=== PATIENT | female | born 1965 | race Caucasian/White ===

== ENCOUNTER → 2018-07-13 | Day surgery (SDC) | payer OTHER ==
--- NOTE | 2018-07-12 08:54 | History & Physical Pre-Op ---
General Information and HPI History of Present Illness: Re is a 52-year-old female with a long-standing worsening complaint of a painful cyst to her right foot. The patient has undergone an extended course of conservative care, including sugar and activity modification, rest, immobilization and course of NSAIDs. None of this is yielded her any significant relief. Patient presents today for preoperative surgical consultation. Allergies/Medications Allergies: Coded Allergies: No Known Allergies (07/09/18) Past History Surgical History Pertinent Surgical History: non-contributory Review of Systems Review of Systems: Unremarkable except for that noted in history present illness Exam & Diagnostic Data Physical Exam: Lungs clear bilaterally. Heart sounds regular rate and regular. Lower extremity physical exam demonstrates intact pedal pulses bilaterally. The dorsalis pedis and posterior tibial arteries are palpable bilaterally. Patient without any sensory motor deficits. Deep tendon reflexes are grossly intact. Patient noted to have significant pain with palpation to the lesion right foot. The lesion is freely mobile, nonpulsatile and firm to palpation. Assessment/Plan Assessment/Plan: Painful enlarging soft tissue mass right foot. A lengthy discussion reviewing both surgical and conservative options with the patient at bedside and the patient elected to go forward with surgery despite the risks. As Ranked By This Provider Problem List: 1. Neoplasm of unspecified behavior of bone, soft tissue, and skin Attending MD Review Statement Attending Statement Attending MD Statement: examined this patient
[~2018-07-13] VITALS: Ht 167.6 cm; Wt 99.8 kg
--- NOTE | 2018-07-13 11:55 | Operative Report ---
Operative/Inv Procedure Report Surgery Date: 07/13/18 Name of Procedure: 1 excision of soft tissue mass right 2 closure of open surgical wound with local random advancement flap 3 intraoperative menstruation medical block anesthesia Pre-Operative Diagnosis: 1 painful enlarging soft tissue mass right foot Post-Operative Diagnosis: The same Estimated Blood Loss: scant Surgeon/Filling Station Attendant: Hammad Munroe DPM Anesthesia: moderate sedation, block Operative/Procedure Note Note: After obtaining informed consent the patient was brought to the operating room and placed on the operating table in the supine position. The patient was then securely fastened to the operating table utilizing safety belt. After menstruation of IV sedation, 10 cc of 0.5% Marcaine plain was infiltrated about the patient's right ankle. A well-padded ankle tourniquet was placed about the patient's right lower extremity. 2 g of Ancef were delivered intravenously 1 dose. The right foot and ankle were then scrubbed, prepped and draped in usual aseptic manner. The right lower extremity is elevated to exsanguinate the limb, at which point the ankle tourniquet was inflated 250 mmHg. Digitek the plantar aspect the right foot, where a nodular soft tissue mass was identified at the distal medial foot. An elliptical incision encompassing the lesion was marked out with a skin marker and a 15 blade was utilized sharply advise a skin margins. The dissection was then carried down into the obtains tissues where the deep side of the lesion was identified and freed from the adjacent soft tissues. There was then excised in toto and passed from the operative field and sent for pathologic inspection. Inspection of the wound failed to reveal any remaining evidence of soft tissue mass. A plantar medial and plantar lateral flap was then developed with undermining, mobilization and advancement of the adjacent tissue centrally. Deep center flap was held with 4-0 Vicryl and the skin edges were reapproximated with 4-0 nylon. The incision was dressed with Xeroform, 4 x 4's, Kerlix and Ld wrap. The patient is noted to tolerate both procedure and anesthesia well and the patient was transferred from the operating room to recovery with vital signs stable and vascular status intact about the plantar medial plantar lateral flaps.
== END ==
LOC: STS 02:38
DX: D21.22 Benign neoplasm of connective and other soft tissue of left lower limb, including hip (principal)
CPT/HCPCS: J0690; J2001; J2250